=== PATIENT | male | born 1935 | race Caucasian/White ===

== ENCOUNTER 2017-04-10 07:01 | Day surgery (SDC) | payer MEDICARE, BC ==
[~2017-04-10 07:01] MED LIST: Propofol 200 MG/20 ML SDV ONE
[2017-04-10] MEDS ORDERED: Sodium Chloride 0.9% 5 ML Syringe FLUSH PRN (08:00)
[2017-04-10] MEDS ORDERED: Lactated Ringers 1,000 ML IV SCH (08:00)
[2017-04-10] MEDS ORDERED: Propofol 200 MG/20 ML SDV IV ONE (08:07)
--- NOTE | 2017-04-10 08:15 | PCM.PN ---
- General Info Date of Service: 04/10/17 - Review of Systems Systems Review Comment:: 81 y/o male with history of dysphagia here for EGD. He is stable to proceed. Procedure discussed with the patient and he agrees to proceed accepting risks. - Patient Data Vitals - Most Recent: Last Vital Signs Temp 97.4 F 04/10/17 07:16 Pulse 64 04/10/17 07:16 Resp 18 04/10/17 07:16 BP 122/75 04/10/17 07:16 Pulse Ox 95 04/10/17 07:16 Weight - Most Recent: 90.718 kg Med Orders - Current: Current Medications Lactated Ringer's (Ringers, Lactated) 1,000 mls @ 50 mls/hr IV ASDIRECTED JAI Last Admin: 04/10/17 07:29 Dose: 50 mls/hr Sodium Chloride (Syrex Flush) 5 ml FLUSH Q8HR PRN PRN Reason: Keep Vein Open Discontinued Medications Propofol (Diprivan 20 Ml) Confirm Administered Dose 400 mg .ROUTE .STK-MED ONE Stop: 04/10/17 06:21 - Problem List Review Problem List Initiated/Reviewed/Updated: Yes - My Orders Last 24 Hours: My Active Orders 04/10/17 08:00 Patient to Empty Bladder [RC] ASDIRECTED Peripheral IV Care [RC] . DIRECTED Verify Patient Consent Obtain [RC] ASDIRECTED Lactated Ringers [Ringers, Lactated] 1,000 ml IV ASDIRECTED Sodium Chloride 0.9% [Syrex Flush] 5 ml FLUSH Q8HR PRN Peripheral IV Insertion Adult [OM.PC] Routine 04/10/17 Breakfast Nothing Per Oral Diet [DIET] - Assessment Assessment:: Dysphagia - Plan Plan:: EGD
--- NOTE | 2017-04-10 08:51 | PCM.OPNOTE ---
- General Post-Op/Procedure Note Date of Surgery/Procedure: 04/10/17 Operative Procedure(s): EGD with Balloon Esophageal Dilation Findings: Mild narrowing of distal esophagus. Exam otherwise normal Pre Op Diagnosis: Dysphagia Post-Op Diagnosis: Esophageal Stenosis Anesthesia Technique: MAC Primary Surgeon: Juvencio Norman Pathology: none Output, Urine Amount: 0 EBL in mLs: 0 Complications: None Condition: Good
[2017-04-10 09:30] VITALS: BP 125/66
--- NOTE | 2017-04-10 17:53 | PROC ---
PROVIDER: Juvencio Norman MD PRE-PROCEDURE DIAGNOSIS: Dysphagia. POST-PROCEDURE DIAGNOSIS: Esophageal stenosis. PROCEDURE PERFORMED: Esophagogastroduodenoscopy with balloon esophageal dilation. INDICATIONS FOR SURGERY: This 81-year-old male has been having increasing symptoms of dysphagia. He is referred for a diagnostic upper endoscopy. FINDINGS: The patient did not have any gross lesions noted during the exam. There did appear to be a mild degree of generalized narrowing of the distal esophagus, although there was no evidence of intrinsic or extrinsic mass or lesion. The stomach and duodenum to the 3rd portion appeared normal with no ulcerations or visible inflammation or other abnormalities. PROCEDURE: The patient was taken to the operating room. He was given intravenous sedation and the esophagus was intubated with the Olympus gastroscope under direct visualization. A careful examination as the scope was advanced through the esophagus did not reveal any evidence of diverticulum. The scope was advanced through the esophagus into the stomach and then on into the duodenum where examination of the 3rd portion was performed. The duodenum and stomach were carefully examined including retroflexed examination of the fundus. No obvious lesions were seen, but in an effort to try and help with the patient's symptoms, balloon dilation of the distal esophagus and GE junction was carried out to [address]. This procedure was tolerated well and there were no visible signs of complication from the balloon dilation. After the balloon had been removed, re-examination of the stomach and GE junction and the esophagus did not show any evidence of injury. No other abnormalities were noted. The scope was removed and the patient was taken from the operating room in satisfactory condition. ESTIMATED BLOOD LOSS: 0. COMPLICATIONS: None. PROGNOSIS: Good. /[id number]/MODL MTDD
== END 2017-04-10 10:00 | disposition home or self-care (01) ==
LOC: KA.SDS 07:01
PROVIDERS: ATTEND Surgery
DX: K22.2 Esophageal obstruction (principal); I25.10 Atherosclerotic heart disease of native coronary artery without angina pectoris; Z79.82 Long term (current) use of aspirin; Z79.899 Other long term (current) drug therapy; Z90.49 Acquired absence of other specified parts of digestive tract; Z95.5 Presence of coronary angioplasty implant and graft; Z98.890 Other specified postprocedural states; Z96.649 Presence of unspecified artificial hip joint; Z78.9 Other specified health status
CPT/HCPCS: 43233; J2704; J7120; 00740

== ENCOUNTER 2023-07-11 17:29 | Observation (INO) | payer MEDICARE, BC ==
[2023-07-11 18:06] LABS: BASOPHILS ABSOLUTE AUTO 0.02 10^3/uL (0.00-0.10); BASOPHILS PERCENT AUTO 0.2 % (0.0-1.0); EOSINOPHILS ABSOLUTE AUTO 0.35 10^3/uL (0.10-0.30); EOSINOPHILS PERCENT AUTO 4.2 % (1.0-3.0); HEMATOCRIT 36.7 % (40.0-52.0); HEMOGLOBIN 12.2 g/dL (13.0-17.0); IMMATURE GRAN ABSOLUTE AUTO 0.02 10^3/uL (0.00-0.50); IMMATURE GRAN PERCENT AUTO 0.2 % (0.0-5.0); LYMPHOCYTES ABSOLUTE AUTO 1.04 10^3/uL (1.00-4.00); LYMPHOCYTES PERCENT AUTO 12.4 % (20.0-40.0); MEAN CORPUSCULAR HEMOGLOBIN 31.9 pg (27.0-31.0); MEAN CORPUSCULAR HGB CONC 33.2 g/dL (32.0-36.0); MEAN CORPUSCULAR VOLUME 95.8 fL (82.0-92.0); MEAN PLATELET VOLUME 10.5 fL (7.4-10.4); MONOCYTES ABSOLUTE AUTO 0.72 10^3/uL (0.10-0.80); MONOCYTES PERCENT AUTO 8.6 % (2.0-8.0); NEUTROPHILS ABSOLUTE AUTO 6.27 10^3/uL (2.50-7.00); NEUTROPHILS PERCENT AUTO 74.4 % (50.0-70.0); PLATELET COUNT,PLT 188 10^3/uL (150-400); RED BLOOD CELL COUNT 3.83 10^6/uL (4.50-6.00); RED CELL DISTRIBUTION WIDTH 12.4 % (11.5-14.5); WHITE BLOOD CELL COUNT,WBC 8.42 10^3/uL (5.00-10.00)
[2023-07-11 18:17] LABS: ALBUMIN 3.36 g/dL (3.40-5.00); ANION GAP 13.5 mmol/L (5-15); BILIRUBIN TOTAL 0.4 mg/dL (0.2-1.0); CALCIUM 8.3 mg/dL (8.7-10.3); CARBON DIOXIDE,CO2 26.2 mmol/L (21.0-32.0); CREATININE 1.35 mg/dL (0.51-1.17); EST CRCL DRUG DOSING (CG) 43.11 mL/min; POTASSIUM,K 4.7 mmol/L (3.5-5.1); PROTEIN TOTAL,TP 6.8 g/dL (6.4-8.2)
[2023-07-11] MEDS ORDERED: Docusate Sodium 100 MG Cap PO PRN (20:00)
[2023-07-11] MEDS ORDERED: Acetaminophen 325 MG Tab PO PRN (20:00)
[2023-07-11] MEDS ORDERED: Ondansetron 4 MG Tab.DIS PO PRN (20:00)
[2023-07-11] MEDS ORDERED: Magnesium Hydroxide 400 MG/5 ML Susp 30 ML Cup PO PRN (20:00)
[2023-07-12 07:30] LABS: BASOPHILS ABSOLUTE AUTO 0.02 10^3/uL (0.00-0.10); BASOPHILS PERCENT AUTO 0.2 % (0.0-1.0); EOSINOPHILS PERCENT AUTO 0.9 % (1.0-3.0); HEMATOCRIT 35.5 % (40.0-52.0); IMMATURE GRAN ABSOLUTE AUTO 0.02 10^3/uL (0.00-0.50); IMMATURE GRAN PERCENT AUTO 0.2 % (0.0-5.0); LYMPHOCYTES ABSOLUTE AUTO 1.19 10^3/uL (1.00-4.00); LYMPHOCYTES PERCENT AUTO 11.2 % (20.0-40.0); MEAN CORPUSCULAR HEMOGLOBIN 31.6 pg (27.0-31.0); MEAN CORPUSCULAR HGB CONC 33.8 g/dL (32.0-36.0); MEAN CORPUSCULAR VOLUME 93.4 fL (82.0-92.0); MONOCYTES ABSOLUTE AUTO 1.06 10^3/uL (0.10-0.80); NEUTROPHILS ABSOLUTE AUTO 8.21 10^3/uL (2.50-7.00); NEUTROPHILS PERCENT AUTO 77.5 % (50.0-70.0); PLATELET COUNT,PLT 218 10^3/uL (150-400)
[2023-07-12] MEDS ORDERED: Omeprazole 20 MG Cap.CR PO SCH (07:30)
[2023-07-12 07:47] LABS: ANION GAP 14.1 mmol/L (5-15); CALCIUM 8.5 mg/dL (8.7-10.3); CARBON DIOXIDE,CO2 24.4 mmol/L (21.0-32.0); CREATININE 1.14 mg/dL (0.51-1.17); EST CRCL DRUG DOSING (CG) 51.05 mL/min; MAGNESIUM 2.1 mg/dL (1.8-2.4); POTASSIUM,K 4.5 mmol/L (3.5-5.1)
[2023-07-12] MEDS ORDERED: Cholecalciferol (Vitamin D3) 25 MCG Tab PO SCH (09:00)
[2023-07-12] MEDS ORDERED: Fluticasone NASAL Spray 16 GM Bottle NASBOTH SCH (09:00)
[2023-07-12] MEDS ORDERED: Aspirin 81 MG Tab.EC PO SCH (09:00)
[2023-07-12] MEDS ORDERED: Apixaban 5 MG Tab PO SCH (09:00)
[2023-07-12] MEDS ORDERED: Pregabalin 25 MG Cap PO SCH (09:00)
[2023-07-12 10:45] LABS: INFLUENZA A NAA NEGATIVE (NEGATIVE); INFLUENZA B NAA NEGATIVE (NEGATIVE); RESPIRATORY SYNCYTIAL VIR NAA NEGATIVE (NEGATIVE)
[2023-07-12 10:46] LABS: CORONAVIRUS COVID-19 NAA NEGATIVE (NEGATIVE)
[2023-07-12 11:07] VITALS: BP 128/64; PULSE 61
[2023-07-12] MEDS ORDERED: Donepezil 10 MG Tab PO SCH (21:00)
[2023-07-12] MEDS ORDERED: atorvaSTATin 10 MG Tab PO SCH (21:00)
== END 2023-07-12 12:30 | disposition home or self-care (01) ==
LOC: KA.ED 17:29 → KA.MS 19:20
PROVIDERS: ADMIT Hospitalist; ATTEND Hospitalist
DX: T67.1XXA Heat syncope, initial encounter (principal); R07.81 Pleurodynia; J98.11 Atelectasis; I25.10 Atherosclerotic heart disease of native coronary artery without angina pectoris; I65.29 Occlusion and stenosis of unspecified carotid artery; I12.9 Hypertensive chronic kidney disease with stage 1 through stage 4 chronic kidney disease, or unspecified chronic kidney disease; N18.30 Chronic kidney disease, stage 3 unspecified; Z20.822 Contact with and (suspected) exposure to COVID-19; Z79.82 Long term (current) use of aspirin; Z79.899 Other long term (current) drug therapy
CPT/HCPCS: 0241U; 36415; 71045; 71101-LT; 80048; 80053; 83605; 83735; 83880; 84145; 84484; 85025; 93010; 97161-GP; 99284; 99285; A9270-GY; G0378; Q3014

== ENCOUNTER 2024-02-20 14:05 | Emergency (ER) | payer MEDICARE, BC ==
[2024-02-20 14:32] LABS: BASOPHILS ABSOLUTE AUTO 0.03 10^3/uL (0.00-0.10); BASOPHILS PERCENT AUTO 0.4 % (0.0-1.0); EOSINOPHILS ABSOLUTE AUTO 0.57 10^3/uL (0.10-0.30); EOSINOPHILS PERCENT AUTO 6.9 % (1.0-3.0); HEMATOCRIT 35.5 % (40.0-52.0); HEMOGLOBIN 11.5 g/dL (13.0-17.0); LYMPHOCYTES ABSOLUTE AUTO 1.11 10^3/uL (1.00-4.00); LYMPHOCYTES PERCENT AUTO 13.5 % (20.0-40.0); MEAN CORPUSCULAR HEMOGLOBIN 31.9 pg (27.0-31.0); MEAN CORPUSCULAR HGB CONC 32.4 g/dL (32.0-36.0); MEAN CORPUSCULAR VOLUME 98.3 fL (82.0-92.0); MEAN PLATELET VOLUME 9.1 fL (7.4-10.4); MONOCYTES ABSOLUTE AUTO 1.09 10^3/uL (0.10-0.80); MONOCYTES PERCENT AUTO 13.3 % (2.0-8.0); NEUTROPHILS ABSOLUTE AUTO 5.42 10^3/uL (2.50-7.00); NEUTROPHILS PERCENT AUTO 65.9 % (50.0-70.0); PLATELET COUNT,PLT 251 10^3/uL (150-400); RED BLOOD CELL COUNT 3.61 10^6/uL (4.50-6.00); RED CELL DISTRIBUTION WIDTH 12.1 % (11.5-14.5); WHITE BLOOD CELL COUNT,WBC 8.22 10^3/uL (5.00-10.00)
[2024-02-20] MEDS: Ondansetron 4 MG/2 ML SDV IVPUSH ONE (14:42)
[2024-02-20] MEDS: Sodium Chloride 0.9% 1,000 ML IV ONE (14:43)
[2024-02-20 14:51] LABS: ALANINE AMINOTRANSFERASE,ALT 25 U/L (14-63); ALBUMIN 3.09 g/dL (3.40-5.00); ALKALINE PHOSPHATASE 58 U/L (46-116); ANION GAP 13.1 mmol/L (5-15); ASPARTATE AMNIOTRANSFERASE,AST 11 U/L (15-37); BILIRUBIN TOTAL 0.4 mg/dL (0.2-1.0); BLOOD UREA NITROGEN,BUN 20 mg/dL (7-18); CALCIUM 8.7 mg/dL (8.7-10.3); CARBON DIOXIDE,CO2 27.6 mmol/L (21.0-32.0); CHLORIDE,CL 107 mmol/L (98-107); CREATININE 1.16 mg/dL (0.51-1.17); GLUCOSE RANDOM 111 mg/dL (70-140); POTASSIUM,K 4.7 mmol/L (3.5-5.1); PROTEIN TOTAL,TP 6.3 g/dL (6.4-8.2); SODIUM,NA 143 mmol/L (136-145)
[2024-02-20 14:55] LABS: ESTIMATED GFR 61 mL/min (>=60)
[2024-02-20] MEDS: Sodium Chloride 0.9% 50 ML IV SCH (15:35)
[2024-02-20] MEDS: Iopamidol 755 Mg/ML 100 ML Bottle IV ONE (15:35)
[2024-02-20 16:39] VITALS: BP 94/55; PULSE 66
== END 2024-02-20 18:30 | disposition home or self-care (01) ==
LOC: KA.ED 14:05
DX: R63.4 Abnormal weight loss (principal); R63.0 Anorexia; K55.1 Chronic vascular disorders of intestine; I10 Essential (primary) hypertension; Z79.82 Long term (current) use of aspirin; Z79.899 Other long term (current) drug therapy; Z79.01 Long term (current) use of anticoagulants; Z95.5 Presence of coronary angioplasty implant and graft; Z68.25 Body mass index [BMI] 25.0-25.9, adult
CPT/HCPCS: 36415; 74177; 80053; 83605; 85025; 93010; 96361; 96374; 99284; 99285-25; J2405; J3490; J7030; Q9967

== ENCOUNTER 2024-04-25 09:22 | Inpatient (IN) | payer MEDICARE, BC ==
[2024-04-25 09:50] LABS: BASOPHILS ABSOLUTE AUTO 0.07 10^3/uL (0.00-0.10); BASOPHILS PERCENT AUTO 0.5 % (0.0-1.0); EOSINOPHILS ABSOLUTE AUTO 1.19 10^3/uL (0.10-0.30); EOSINOPHILS PERCENT AUTO 8.7 % (1.0-3.0); HEMATOCRIT 33.8 % (40.0-52.0); HEMOGLOBIN 10.8 g/dL (13.0-17.0); IMMATURE GRAN ABSOLUTE AUTO 0.08 10^3/uL (0.00-0.50); IMMATURE GRAN PERCENT AUTO 0.6 % (0.0-5.0); LYMPHOCYTES ABSOLUTE AUTO 1.11 10^3/uL (1.00-4.00); LYMPHOCYTES PERCENT AUTO 8.1 % (20.0-40.0); MEAN PLATELET VOLUME 9.6 fL (7.4-10.4); MONOCYTES ABSOLUTE AUTO 1.52 10^3/uL (0.10-0.80); MONOCYTES PERCENT AUTO 11.1 % (2.0-8.0); NEUTROPHILS ABSOLUTE AUTO 9.74 10^3/uL (2.50-7.00); PLATELET COUNT,PLT 267 10^3/uL (150-400); RED BLOOD CELL COUNT 3.38 10^6/uL (4.50-6.00); RED CELL DISTRIBUTION WIDTH 12.3 % (11.5-14.5); WHITE BLOOD CELL COUNT,WBC 13.71 10^3/uL (5.00-10.00)
[2024-04-25 10:07] LABS: ALANINE AMINOTRANSFERASE,ALT 407 U/L (14-63); ALBUMIN 2.74 g/dL (3.40-5.00); ALKALINE PHOSPHATASE 501 U/L (46-116); ANION GAP 14.8 mmol/L (5-15); ASPARTATE AMNIOTRANSFERASE,AST 117 U/L (15-37); BLOOD UREA NITROGEN,BUN 23 mg/dL (7-18); CALCIUM 8.8 mg/dL (8.7-10.3); CARBON DIOXIDE,CO2 23.6 mmol/L (21.0-32.0); CHLORIDE,CL 103 mmol/L (98-107); CREATININE 1.22 mg/dL (0.51-1.17); GLUCOSE RANDOM 143 mg/dL (70-140); POTASSIUM,K 4.4 mmol/L (3.5-5.1); PROTEIN TOTAL,TP 6.6 g/dL (6.4-8.2); SODIUM,NA 137 mmol/L (136-145)
[2024-04-25 10:11] LABS: B-TYPE NATRIURETIC PEPTIDE,BNP 98 pg/mL (0-100)
[2024-04-25 10:21] LABS: ESTIMATED GFR 57 mL/min (>=60)
[2024-04-25] MEDS: Sodium Chloride 0.9% 1,000 ML IV ONE (10:48)
[2024-04-25 12:11] LABS: APPEARANCE,URINE CLEAR (CLEAR); BILIRUBIN,URINE SMALL (NEGATIVE); COLOR,URINE DARK YELLOW (YELLOW); GLUCOSE,URINE NEGATIVE (NEGATIVE); KETONES,URINE NEGATIVE (NEGATIVE); LEUKOCYTE ESTERASE,URINE NEGATIVE (NEGATIVE); NITRITE,URINE NEGATIVE (NEGATIVE); OCCULT BLOOD,URINE NEGATIVE (NEGATIVE); PH,URINE 5.5 (5.0-9.0); PROTEIN,URINE TRACE mg/dL (NEGATIVE); UROBILINOGEN,URINE 0.2 E.U./dL (0.2-1.0)
[2024-04-25 12:21] LABS: BACTERIA,URINE FEW /HPF (NONE TO FEW); EPITHELIAL CELLS,URINE FEW /LPF; GRANULAR CASTS,URINE FEW; MUCUS,URINE RARE /LPF (NEGATIVE); RBC,URINE 0-5 /HPF (0-5); WBC,URINE 0-5 /HPF (0-5)
[2024-04-25] MEDS: Sodium Chloride 0.9% 50 ML IV SCH (13:01)
[2024-04-25] MEDS: Iopamidol 755 Mg/ML 100 ML Bottle IV ONE (13:01)
[2024-04-25 13:28] LABS: INFLUENZA A NAA NEGATIVE (NEGATIVE); INFLUENZA B NAA NEGATIVE (NEGATIVE); RESPIRATORY SYNCYTIAL VIR NAA NEGATIVE (NEGATIVE)
[2024-04-25 13:29] LABS: CORONAVIRUS COVID-19 NAA NEGATIVE (NEGATIVE)
[2024-04-25] MEDS ORDERED: Magnesium Hydroxide 400 MG/5 ML Susp 30 ML Cup PO PRN (14:56)
[2024-04-25] MEDS ORDERED: Ibuprofen 400 MG Tab PO PRN (14:56)
[2024-04-25] MEDS ORDERED: Docusate Sodium 100 MG Cap PO PRN (14:56)
[2024-04-25] MEDS ORDERED: Ondansetron 4 MG/2 ML SDV IV PRN (14:56)
[2024-04-25] MEDS: Acetaminophen 325 MG Tab PO PRN (15:59)
[2024-04-25] MEDS: metroNIDAZOLE 500 MG Tab PO SCH (15:59)
[2024-04-25] MEDS: Sodium Chloride 0.9% 250 ML IV SCH (16:00)
[2024-04-25] MEDS: Donepezil 10 MG Tab PO SCH (20:57)
[2024-04-25] MEDS: Ciprofloxacin 500 MG Tab PO SCH (20:57)
[2024-04-25] MEDS: Zinc Sulfate 220 MG Cap PO SCH (20:57)
[2024-04-25] MEDS: atorvaSTATin 10 MG Tab PO SCH (20:58)
[2024-04-25] MEDS: Sennosides/Docusate Sodium 50-8.6 MG Tab PO SCH (20:58)
[2024-04-25] MEDS: Apixaban 5 MG Tab PO SCH (20:58)
[2024-04-25] MEDS: Sodium Chloride 0.9% 1,000 ML IV SCH (20:59)
[2024-04-26] MEDS: Omeprazole 20 MG Cap.CR PO SCH (08:48)
[2024-04-26] MEDS: Aspirin 81 MG Tab.EC PO SCH (08:48)
[2024-04-26] MEDS: DULoxetine 30 MG Cap PO SCH (08:48)
[2024-04-26] MEDS: Multivitamins with Minerals/Iron/Folic Acid/Lycopene Tab PO SCH (09:59)
[2024-04-26 10:02] LABS: BASOPHILS ABSOLUTE AUTO 0.06 10^3/uL (0.00-0.10); BASOPHILS PERCENT AUTO 0.5 % (0.0-1.0); EOSINOPHILS PERCENT AUTO 6.7 % (1.0-3.0); HEMOGLOBIN 8.2 g/dL (13.0-17.0); IMMATURE GRAN ABSOLUTE AUTO 0.05 10^3/uL (0.00-0.50); IMMATURE GRAN PERCENT AUTO 0.4 % (0.0-5.0); LYMPHOCYTES ABSOLUTE AUTO 0.87 10^3/uL (1.00-4.00); LYMPHOCYTES PERCENT AUTO 7.3 % (20.0-40.0); MEAN CORPUSCULAR HEMOGLOBIN 32.7 pg (27.0-31.0); MEAN CORPUSCULAR HGB CONC 32.8 g/dL (32.0-36.0); MEAN CORPUSCULAR VOLUME 99.6 fL (82.0-92.0); MEAN PLATELET VOLUME 9.1 fL (7.4-10.4); MONOCYTES ABSOLUTE AUTO 1.44 10^3/uL (0.10-0.80); MONOCYTES PERCENT AUTO 12.1 % (2.0-8.0); NEUTROPHILS ABSOLUTE AUTO 8.64 10^3/uL (2.50-7.00); PLATELET COUNT,PLT 238 10^3/uL (150-400); RED BLOOD CELL COUNT 2.51 10^6/uL (4.50-6.00); RED CELL DISTRIBUTION WIDTH 12.6 % (11.5-14.5); WHITE BLOOD CELL COUNT,WBC 11.86 10^3/uL (5.00-10.00)
[2024-04-26 10:18] LABS: ALBUMIN 2.29 g/dL (3.40-5.00); ANION GAP 12.9 mmol/L (5-15); BILIRUBIN TOTAL 0.7 mg/dL (0.2-1.0); CALCIUM 8.2 mg/dL (8.7-10.3); CARBON DIOXIDE,CO2 25.3 mmol/L (21.0-32.0); CREATININE 1.2 mg/dL (0.51-1.17); EST CRCL DRUG DOSING (CG) 44.78 mL/min; MAGNESIUM 1.8 mg/dL (1.8-2.4); POTASSIUM,K 4.2 mmol/L (3.5-5.1); PROTEIN TOTAL,TP 5.7 g/dL (6.4-8.2)
[2024-04-27] MEDS: Lactobacillus Rhamnosus GG (Probiotic) Cap PO SCH (15:05)
[2024-04-28 07:20] LABS: BASOPHILS ABSOLUTE AUTO 0.07 10^3/uL (0.00-0.10); BASOPHILS PERCENT AUTO 0.5 % (0.0-1.0); EOSINOPHILS ABSOLUTE AUTO 1.14 10^3/uL (0.10-0.30); EOSINOPHILS PERCENT AUTO 7.9 % (1.0-3.0); HEMATOCRIT 25.2 % (40.0-52.0); HEMOGLOBIN 8.3 g/dL (13.0-17.0); IMMATURE GRAN ABSOLUTE AUTO 0.08 10^3/uL (0.00-0.50); IMMATURE GRAN PERCENT AUTO 0.6 % (0.0-5.0); LYMPHOCYTES ABSOLUTE AUTO 1.04 10^3/uL (1.00-4.00); LYMPHOCYTES PERCENT AUTO 7.2 % (20.0-40.0); MEAN CORPUSCULAR HEMOGLOBIN 32.4 pg (27.0-31.0); MEAN CORPUSCULAR HGB CONC 32.9 g/dL (32.0-36.0); MEAN CORPUSCULAR VOLUME 98.4 fL (82.0-92.0); MEAN PLATELET VOLUME 8.9 fL (7.4-10.4); MONOCYTES ABSOLUTE AUTO 1.99 10^3/uL (0.10-0.80); MONOCYTES PERCENT AUTO 13.8 % (2.0-8.0); NEUTROPHILS ABSOLUTE AUTO 10.12 10^3/uL (2.50-7.00); PLATELET COUNT,PLT 271 10^3/uL (150-400); RED BLOOD CELL COUNT 2.56 10^6/uL (4.50-6.00); RED CELL DISTRIBUTION WIDTH 12.4 % (11.5-14.5); WHITE BLOOD CELL COUNT,WBC 14.44 10^3/uL (5.00-10.00)
[2024-04-28 07:37] LABS: ANION GAP 12.8 mmol/L (5-15); CALCIUM 8.4 mg/dL (8.7-10.3); CARBON DIOXIDE,CO2 25.6 mmol/L (21.0-32.0); CREATININE 1.01 mg/dL (0.51-1.17); EST CRCL DRUG DOSING (CG) 53.2 mL/min; MAGNESIUM 1.6 mg/dL (1.8-2.4); POTASSIUM,K 4.4 mmol/L (3.5-5.1)
[2024-04-28] MEDS: Magnesium Oxide 500 MG Tab PO ONE (08:06)
[2024-04-29 07:21] LABS: BASOPHILS ABSOLUTE AUTO 0.06 10^3/uL (0.00-0.10); BASOPHILS PERCENT AUTO 0.5 % (0.0-1.0); EOSINOPHILS ABSOLUTE AUTO 1.18 10^3/uL (0.10-0.30); EOSINOPHILS PERCENT AUTO 9.3 % (1.0-3.0); HEMATOCRIT 24.4 % (40.0-52.0); HEMOGLOBIN 7.7 g/dL (13.0-17.0); IMMATURE GRAN ABSOLUTE AUTO 0.09 10^3/uL (0.00-0.50); IMMATURE GRAN PERCENT AUTO 0.7 % (0.0-5.0); LYMPHOCYTES ABSOLUTE AUTO 1.27 10^3/uL (1.00-4.00); MEAN CORPUSCULAR HEMOGLOBIN 31.6 pg (27.0-31.0); MEAN CORPUSCULAR HGB CONC 31.6 g/dL (32.0-36.0); MEAN PLATELET VOLUME 8.9 fL (7.4-10.4); MONOCYTES ABSOLUTE AUTO 1.71 10^3/uL (0.10-0.80); MONOCYTES PERCENT AUTO 13.5 % (2.0-8.0); NEUTROPHILS ABSOLUTE AUTO 8.37 10^3/uL (2.50-7.00); PLATELET COUNT,PLT 307 10^3/uL (150-400); RED BLOOD CELL COUNT 2.44 10^6/uL (4.50-6.00); RED CELL DISTRIBUTION WIDTH 12.8 % (11.5-14.5); WHITE BLOOD CELL COUNT,WBC 12.68 10^3/uL (5.00-10.00)
[2024-04-29 07:37] LABS: ALBUMIN 2.33 g/dL (3.40-5.00); ANION GAP 12.3 mmol/L (5-15); BILIRUBIN TOTAL 1.1 mg/dL (0.2-1.0); CALCIUM 8.2 mg/dL (8.7-10.3); CARBON DIOXIDE,CO2 25.9 mmol/L (21.0-32.0); CREATININE 1.06 mg/dL (0.51-1.17); EST CRCL DRUG DOSING (CG) 50.44 mL/min; MAGNESIUM 1.7 mg/dL (1.8-2.4); POTASSIUM,K 4.2 mmol/L (3.5-5.1); PROTEIN TOTAL,TP 5.9 g/dL (6.4-8.2)
[2024-04-29 11:11] VITALS: BP 111/58; PULSE 79
== END 2024-04-29 11:03 | disposition swing bed (61) | DRG 312 ==
LOC: KA.ED 09:22 → KA.MS 12:43
PROVIDERS: ADMIT Family Medicine; ATTEND Internal Medicine
DX: T67.1XXA Heat syncope, initial encounter (principal); R94.5 Abnormal results of liver function studies; E87.20 Acidosis, unspecified; R55 Syncope and collapse; I10 Essential (primary) hypertension; M19.90 Unspecified osteoarthritis, unspecified site; Z79.82 Long term (current) use of aspirin; Z79.899 Other long term (current) drug therapy; Z90.49 Acquired absence of other specified parts of digestive tract; I48.91 Unspecified atrial fibrillation; T44.1X5A Adverse effect of other parasympathomimetics [cholinergics], initial encounter; D72.829 Elevated white blood cell count, unspecified; K52.9 Noninfective gastroenteritis and colitis, unspecified
CPT/HCPCS: 0241U; 36415; 70450; 71045; 74177; 80048; 80053; 81001; 83605; 83690; 83735; 83880; 84145; 84484; 85025; 86140; 87040; 93005; 93010; 96360; 99223-GT; 99232-GT; 99233-GT; 99239-GT; 99284; 99285-25; A9270-GY; J3490; J7030; J7050; Q3014; Q9967

== ENCOUNTER 2024-04-29 08:25 | Inpatient (IN) | payer MEDICARE, BC ==
[2024-04-29] MEDS ORDERED: Ondansetron 4 MG/2 ML SDV IV PRN (11:10)
[2024-04-29] MEDS ORDERED: Docusate Sodium 100 MG Cap PO PRN (11:10)
[2024-04-29] MEDS ORDERED: Magnesium Hydroxide 400 MG/5 ML Susp 30 ML Cup PO PRN (11:10)
[2024-04-29] MEDS ORDERED: Ibuprofen 400 MG Tab PO PRN (11:10)
[2024-04-29] MEDS: metroNIDAZOLE 500 MG Tab PO SCH (15:41)
[2024-04-29] MEDS: Sodium Chloride 0.9% 1,000 ML IV ONE (15:41)
[2024-04-29] MEDS: Apixaban 5 MG Tab PO SCH (21:27)
[2024-04-29] MEDS: Zinc Sulfate 220 MG Cap PO SCH (21:27)
[2024-04-29] MEDS: atorvaSTATin 10 MG Tab PO SCH (21:27)
[2024-04-29] MEDS: Sennosides/Docusate Sodium 50-8.6 MG Tab PO SCH (21:27)
[2024-04-29] MEDS: Ciprofloxacin 500 MG Tab PO SCH (21:27)
[2024-04-29] MEDS: Acetaminophen 325 MG Tab PO PRN (21:30)
[2024-04-30] MEDS: Omeprazole 20 MG Cap.CR PO SCH (06:01)
[2024-04-30] MEDS: Lactobacillus Rhamnosus GG (Probiotic) Cap PO SCH (08:28)
[2024-04-30] MEDS: DULoxetine 30 MG Cap PO SCH (08:28)
[2024-04-30] MEDS: Aspirin 81 MG Tab.EC PO SCH (08:28)
[2024-04-30] MEDS: Multivitamins with Minerals/Iron/Folic Acid/Lycopene Tab PO SCH (08:28)
[2024-05-05] MEDS: Sodium Chloride 0.9% 10 ML Syringe FLUSH PRN (21:00)
[2024-05-06] MEDS: Tamsulosin 0.4 MG Cap.ER PO SCH (12:30)
[2024-05-06 14:45] LABS: APPEARANCE,URINE CLEAR (CLEAR); BILIRUBIN,URINE NEGATIVE (NEGATIVE); COLOR,URINE YELLOW (YELLOW); GLUCOSE,URINE NEGATIVE (NEGATIVE); KETONES,URINE NEGATIVE (NEGATIVE); LEUKOCYTE ESTERASE,URINE NEGATIVE (NEGATIVE); NITRITE,URINE NEGATIVE (NEGATIVE); OCCULT BLOOD,URINE NEGATIVE (NEGATIVE); PH,URINE 5.5 (5.0-9.0); PROTEIN,URINE NEGATIVE (NEGATIVE); UROBILINOGEN,URINE 0.2 E.U./dL (0.2-1.0)
[2024-05-07 17:01] VITALS: BP 108/63; PULSE 82
== END 2024-05-07 17:00 | disposition home or self-care (01) | DRG 948 ==
LOC: KA.MS 11:03
PROVIDERS: ADMIT Internal Medicine; ATTEND Internal Medicine
DX: R53.81 Other malaise (principal); K86.9 Disease of pancreas, unspecified; I48.0 Paroxysmal atrial fibrillation; M06.9 Rheumatoid arthritis, unspecified; I10 Essential (primary) hypertension; Z96.653 Presence of artificial knee joint, bilateral; R41.3 Other amnesia; R35.0 Frequency of micturition; M19.90 Unspecified osteoarthritis, unspecified site; M47.27 Other spondylosis with radiculopathy, lumbosacral region; R55 Syncope and collapse; F03.90 Unspecified dementia, unspecified severity, without behavioral disturbance, psychotic disturbance, mood disturbance, and anxiety; Z79.899 Other long term (current) drug therapy; Z95.5 Presence of coronary angioplasty implant and graft
CPT/HCPCS: 81003; 92523; 93005; A9270-GY; J3490; J7030; Q3014

== ENCOUNTER 2024-07-23 18:07 | Inpatient (IN) | payer MEDICARE, BC ==
[2024-07-23] MEDS ORDERED: Sodium Chloride 0.9% 10 ML Syringe FLUSH PRN (18:44)
[2024-07-23] MEDS: Sodium Chloride 0.9% 1,000 ML IV ONE (19:01)
[2024-07-23 19:04] LABS: BASOPHILS ABSOLUTE AUTO 0.04 10^3/uL (0.00-0.10); BASOPHILS PERCENT AUTO 0.3 % (0.0-1.0); EOSINOPHILS ABSOLUTE AUTO 0.34 10^3/uL (0.10-0.30); EOSINOPHILS PERCENT AUTO 2.4 % (1.0-3.0); HEMATOCRIT 35.8 % (40.0-52.0); HEMOGLOBIN 11.8 g/dL (13.0-17.0); IMMATURE GRAN ABSOLUTE AUTO 0.02 10^3/uL (0.00-0.04); IMMATURE GRAN PERCENT AUTO 0.1 % (0.0-0.4); LYMPHOCYTES ABSOLUTE AUTO 0.48 10^3/uL (1.00-4.00); LYMPHOCYTES PERCENT AUTO 3.4 % (20.0-40.0); MEAN CORPUSCULAR HEMOGLOBIN 31.2 pg (27.0-31.0); MEAN CORPUSCULAR VOLUME 94.7 fL (82.0-92.0); MEAN PLATELET VOLUME 9.5 fL (7.4-10.4); MONOCYTES ABSOLUTE AUTO 1.78 10^3/uL (0.10-0.80); MONOCYTES PERCENT AUTO 12.8 % (2.0-8.0); PLATELET COUNT,PLT 274 10^3/uL (150-400); RED BLOOD CELL COUNT 3.78 10^6/uL (4.50-6.00); RED CELL DISTRIBUTION WIDTH 12.8 % (11.5-14.5); WHITE BLOOD CELL COUNT,WBC 13.96 10^3/uL (5.00-10.00)
[2024-07-23 19:15] LABS: ALBUMIN 2.92 g/dL (3.40-5.00); ANION GAP 15.2 mmol/L (5-15); BILIRUBIN TOTAL 0.8 mg/dL (0.2-1.0); CALCIUM 8.4 mg/dL (8.7-10.3); CARBON DIOXIDE,CO2 26.4 mmol/L (21.0-32.0); CREATININE 1.12 mg/dL (0.51-1.17); EST CRCL DRUG DOSING (CG) 49.95 mL/min; POTASSIUM,K 4.6 mmol/L (3.5-5.1); PROTEIN TOTAL,TP 6.6 g/dL (6.4-8.2)
[2024-07-23] MEDS: guaiFENesin/Dextromethorphan 100-10 MG/5 ML Soln 5 ML Cup PO PRN (19:20)
[2024-07-23] MEDS ORDERED: Albuterol/Ipratropium 3.0-0.5 MG/3 ML Neb Soln NEB PRN (21:51)
[2024-07-23] MEDS ORDERED: Ondansetron 4 MG/2 ML SDV IV PRN (21:51)
[2024-07-23] MEDS: Sodium Chloride 0.9% 250 ML IV SCH (22:56)
[2024-07-23] MEDS: REMDESIVIR 200 MG in Sodium Chloride 0.9% 100 ML IV ONE (22:56)
[2024-07-24] MEDS: Psyllium Husk Powder Sugar Free 5.85 GM Packet PO SCH (07:28)
[2024-07-24] MEDS: DULoxetine 30 MG Cap PO SCH (07:28)
[2024-07-24] MEDS: Sennosides/Docusate Sodium 50-8.6 MG Tab PO SCH (07:28)
[2024-07-24] MEDS: Omeprazole 20 MG Cap.CR PO SCH (07:29)
[2024-07-24] MEDS: Fish Oil/Omega-3 Fatty Acids 1 Gm Cap PO SCH (07:29)
[2024-07-24] MEDS: Apixaban 5 MG Tab PO SCH (07:29)
[2024-07-24] MEDS: Multivitamins with Minerals/Iron/Folic Acid/Lycopene Tab PO SCH (07:29)
[2024-07-24] MEDS: Aspirin 81 MG Tab.EC PO SCH (07:29)
[2024-07-24 07:32] LABS: HEMATOCRIT 34.2 % (40.0-52.0); HEMOGLOBIN 11.2 g/dL (13.0-17.0); MEAN CORPUSCULAR HEMOGLOBIN 31.3 pg (27.0-31.0); MEAN CORPUSCULAR HGB CONC 32.7 g/dL (32.0-36.0); MEAN CORPUSCULAR VOLUME 95.5 fL (82.0-92.0); MEAN PLATELET VOLUME 9.6 fL (7.4-10.4); PLATELET COUNT,PLT 241 10^3/uL (150-400); RED BLOOD CELL COUNT 3.58 10^6/uL (4.50-6.00); RED CELL DISTRIBUTION WIDTH 12.8 % (11.5-14.5); WHITE BLOOD CELL COUNT,WBC 12.03 10^3/uL (5.00-10.00)
[2024-07-24 07:52] LABS: ALBUMIN 2.74 g/dL (3.40-5.00); ANION GAP 13.2 mmol/L (5-15); BILIRUBIN TOTAL 0.5 mg/dL (0.2-1.0); CALCIUM 8.5 mg/dL (8.7-10.3); CARBON DIOXIDE,CO2 27.6 mmol/L (21.0-32.0); CREATININE 1.06 mg/dL (0.51-1.17); EST CRCL DRUG DOSING (CG) 52.78 mL/min; POTASSIUM,K 4.8 mmol/L (3.5-5.1); PROTEIN TOTAL,TP 6.2 g/dL (6.4-8.2)
[2024-07-24] MEDS: Acetaminophen 325 MG Tab PO PRN (17:28)
[2024-07-24] MEDS: Zinc Sulfate 220 MG Cap PO SCH (21:36)
[2024-07-24] MEDS: diphenhydrAMINE 25 MG Cap PO SCH (21:36)
[2024-07-24] MEDS: REMDESIVIR 100 MG in Sodium Chloride 0.9% 100 ML IV SCH (22:30)
[2024-07-25 07:23] LABS: BASOPHILS ABSOLUTE AUTO 0.05 10^3/uL (0.00-0.10); BASOPHILS PERCENT AUTO 0.5 % (0.0-1.0); EOSINOPHILS ABSOLUTE AUTO 0.77 10^3/uL (0.10-0.30); EOSINOPHILS PERCENT AUTO 8.1 % (1.0-3.0); HEMATOCRIT 36.7 % (40.0-52.0); IMMATURE GRAN ABSOLUTE AUTO 0.01 10^3/uL (0.00-0.04); IMMATURE GRAN PERCENT AUTO 0.1 % (0.0-0.4); LYMPHOCYTES ABSOLUTE AUTO 1.02 10^3/uL (1.00-4.00); LYMPHOCYTES PERCENT AUTO 10.7 % (20.0-40.0); MEAN CORPUSCULAR HGB CONC 32.7 g/dL (32.0-36.0); MEAN CORPUSCULAR VOLUME 94.8 fL (82.0-92.0); MEAN PLATELET VOLUME 9.7 fL (7.4-10.4); MONOCYTES ABSOLUTE AUTO 1.87 10^3/uL (0.10-0.80); MONOCYTES PERCENT AUTO 19.6 % (2.0-8.0); NEUTROPHILS ABSOLUTE AUTO 5.81 10^3/uL (2.50-7.00); PLATELET COUNT,PLT 250 10^3/uL (150-400); RED BLOOD CELL COUNT 3.87 10^6/uL (4.50-6.00); WHITE BLOOD CELL COUNT,WBC 9.53 10^3/uL (5.00-10.00)
[2024-07-25 07:47] LABS: ALBUMIN 2.64 g/dL (3.40-5.00); ANION GAP 13.5 mmol/L (5-15); BILIRUBIN TOTAL 0.3 mg/dL (0.2-1.0); CALCIUM 8.6 mg/dL (8.7-10.3); CARBON DIOXIDE,CO2 26.5 mmol/L (21.0-32.0); CREATININE 0.95 mg/dL (0.51-1.17); EST CRCL DRUG DOSING (CG) 58.89 mL/min; PROTEIN TOTAL,TP 6.2 g/dL (6.4-8.2)
[2024-07-26 07:35] LABS: BASOPHILS ABSOLUTE AUTO 0.05 10^3/uL (0.00-0.10); BASOPHILS PERCENT AUTO 0.4 % (0.0-1.0); EOSINOPHILS ABSOLUTE AUTO 0.97 10^3/uL (0.10-0.30); EOSINOPHILS PERCENT AUTO 8.7 % (1.0-3.0); HEMATOCRIT 38.3 % (40.0-52.0); HEMOGLOBIN 12.5 g/dL (13.0-17.0); IMMATURE GRAN ABSOLUTE AUTO 0.01 10^3/uL (0.00-0.04); IMMATURE GRAN PERCENT AUTO 0.1 % (0.0-0.4); LYMPHOCYTES ABSOLUTE AUTO 1.39 10^3/uL (1.00-4.00); LYMPHOCYTES PERCENT AUTO 12.4 % (20.0-40.0); MEAN CORPUSCULAR HEMOGLOBIN 31.2 pg (27.0-31.0); MEAN CORPUSCULAR HGB CONC 32.6 g/dL (32.0-36.0); MEAN CORPUSCULAR VOLUME 95.5 fL (82.0-92.0); MONOCYTES ABSOLUTE AUTO 1.64 10^3/uL (0.10-0.80); MONOCYTES PERCENT AUTO 14.6 % (2.0-8.0); NEUTROPHILS ABSOLUTE AUTO 7.14 10^3/uL (2.50-7.00); NEUTROPHILS PERCENT AUTO 63.8 % (50.0-70.0); PLATELET COUNT,PLT 276 10^3/uL (150-400); RED BLOOD CELL COUNT 4.01 10^6/uL (4.50-6.00); RED CELL DISTRIBUTION WIDTH 12.8 % (11.5-14.5)
[2024-07-26 07:53] LABS: ALBUMIN 2.67 g/dL (3.40-5.00); ANION GAP 14.1 mmol/L (5-15); BILIRUBIN TOTAL 0.3 mg/dL (0.2-1.0); CALCIUM 8.8 mg/dL (8.7-10.3); CARBON DIOXIDE,CO2 28.2 mmol/L (21.0-32.0); CREATININE 1.08 mg/dL (0.51-1.17); EST CRCL DRUG DOSING (CG) 51.8 mL/min; POTASSIUM,K 4.3 mmol/L (3.5-5.1); PROTEIN TOTAL,TP 6.8 g/dL (6.4-8.2)
[2024-07-27 12:02] VITALS: BP 143/74; PULSE 72
== END 2024-07-27 11:50 | disposition home or self-care (01) | DRG 179 ==
LOC: KA.ED 18:07 → KA.MS 19:30
PROVIDERS: ADMIT Internal Medicine; ATTEND Internal Medicine
PROC: XW033E5 Introduction of Remdesivir Anti-infective into Peripheral Vein, Percutaneous Approach, New Technology Group 5 (ICD-10-PCS; principal; 2024-07-23)
DX: U07.1 COVID-19 (principal); I48.0 Paroxysmal atrial fibrillation; I25.10 Atherosclerotic heart disease of native coronary artery without angina pectoris; N40.0 Benign prostatic hyperplasia without lower urinary tract symptoms; Z90.49 Acquired absence of other specified parts of digestive tract; I10 Essential (primary) hypertension; F32.A Depression, unspecified; E78.00 Pure hypercholesterolemia, unspecified; K59.09 Other constipation; F03.90 Unspecified dementia, unspecified severity, without behavioral disturbance, psychotic disturbance, mood disturbance, and anxiety; M06.9 Rheumatoid arthritis, unspecified; Z96.649 Presence of unspecified artificial hip joint; Z96.619 Presence of unspecified artificial shoulder joint; F15.90 Other stimulant use, unspecified, uncomplicated; R79.89 Other specified abnormal findings of blood chemistry; Z79.01 Long term (current) use of anticoagulants; Z79.82 Long term (current) use of aspirin; Z95.5 Presence of coronary angioplasty implant and graft; Z79.1 Long term (current) use of non-steroidal anti-inflammatories (NSAID); Z90.89 Acquired absence of other organs; Z98.890 Other specified postprocedural states; Z79.899 Other long term (current) drug therapy; Z79.02 Long term (current) use of antithrombotics/antiplatelets
CPT/HCPCS: 36415; 71045; 80053; 83605; 83735; 85025; 85027; 87040; 87428-QW; 97116-GP; 97161-GP; 97165-GO; 99223-GT; 99232-GT; 99233-GT; 99239-GT; 99284; 99285; A9270-GY; J0248; J7030; Q3014